=== PATIENT | male | born 1950 | race Caucasian/White ===

== ENCOUNTER → 2017-02-15 | Outpatient (CLI) | payer MEDICARE ==
--- NOTE | 2017-02-15 13:00 | NM ---
EXAMINATION TYPE: NM stress cardiolite complete DATE OF EXAM: 02/15/2017 COMPARISON: NONE HISTORY: Diabetes and chest pain. TECHNIQUE: After the intravenous administration of 10.58 mCi Tc 99m Sestamibi - Rest images obtained 45 minutes post injection. The patient exercised using a VERONICA protocol and 1 minute prior to peak exercise was injected with 27.9 mCi Tc 99m Sestamibi - Stress images obtained 10 minutes post inject ion. FINDINGS: Targeted heart rate was achieved during performance of the study. Review of stress and rest SPECT andrew ges demonstrates no distinct perfusion abnormality. Gated analysis shows normal wall motion with an estimated left ventricular ejection fraction of 67 %. There is a TID of 0.72. IMPRESSION: 1. No scintigraphic evidence for reversible ischemia 2. Estimated left ventricular ejection fraction of 67%.
--- NOTE | 2017-02-15 13:08 | US ---
EXAMINATION TYPE: US abdomen complete DATE OF EXAM: 02/15/2017 COMPARISON: None CLINICAL HISTORY: R10.84 abd pain. NPO, Pain EXAM MEASUREMENTS: Liver Length: 27.7 cm Gallbladder Wall: 0.3 cm CHD: 0.2 cm Spleen: 13.3 cm Right Kidney: 12.8 x 5.8 x 6.0 cm Left Kidney: 12.5 x 5.5 x 6.6 cm Pancreas: Obscured by bowel gas Liver: Enlarged. Increased attenuation, decreased visualization of vessels suggestive of fatty infi ltrate. Hypoechoic lesion seen adjacent to gallbladder = 1.4 cm . This may represent focal fatty spa ring although has a rounded morphology and may also represent a true hepatic lesion. Gallbladder: wnl Evidence for sonographic Landin's sign: neg CHD: wnl Spleen: Measurement approaching splenomegaly of 13.3 cm. Right Kidney: Appears enlarged Left Kidney: Appears enlarged Upper IVC: wnl Abd Aorta: Obscured by overlying bowel gas IMPRESSION: 1. Heterogenous and hyperechoic hepatic echotexture most commonly relating to hepatic steatosis. 2. Rounded hypoechoic hepatic lesion near the gallbladder fossa in segment IVb may represent focal fa tty sparing although as this is rounded in morphology and also may represent a hepatic mass and furth er evaluation with dynamic enhanced CT abdomen is recommended (liver mass protocol) for further evalu ation. 3. Splenic prominence approaching criteria for splenomegaly.
--- NOTE | 2017-02-16 09:26 | EST ---
EXERCISE STRESS This is ECG exercise stress test. AGE: 66 SEX: M HT: 6'2" WT: 252 PROTOCOL: Giovanni STAGE: 3 DURATION OF EXERCISE: 7:12 HEART RATE REST: 69 BLOOD PRESSURE REST: 147/79 MAXIMUM HEART RATE ACHIEVED: 147 MAXIMUM BLOOD PRESSURE: 183/57 85% MPHR: 130 100% MPHR: 153 METS: 8.7 INDICATIONS: History of chest pain. CLINICAL INFORMATION: Baseline heart rate 69 beats per minute. Baseline blood pressure 147/79 mmHg. Patient's baseline 12-lead ECG showed sinus rhythm with normal ST segments and frequent PVCs. The patient exercised on a Giovanni protocol for 7 minutes 12 seconds achieving a peak heart rate of 147 beats per minute. Normal blood pressure response to exercise. Peak blood pressure 193/57 mmHg. There was no ECG evidence for ischemia. PVCs were noted throughout the exercise protocol. One ventricular couplet was noted. No nonsustained ventricular tachycardia. No ECG evidence for ischemia. IMPRESSION: Average exercise capacity. PVCs at rest as well as during exercise and occasional ventricular couplets. No nonsustained ventricular tachycardia. No definite ECG evidence for ischemia. MMODL / IJN: [id number] /
== END | disposition home or self-care (01) ==
LOC: RADNMMAIN 07:52
PROVIDERS: ATTEND Family Medicine
DX: K76.89 Other specified diseases of liver (principal); R07.89 Other chest pain; R10.84 Generalized abdominal pain
CPT/HCPCS: 93017; 76700; 78452; A9500

== ENCOUNTER 2024-09-10 09:17 | Day surgery (SDC) | payer MEDICARE ==
[2024-09-04 15:23] VITALS: BMI 32.7
[~2024-09-10 09:17] MED LIST: LIDOCAINE 1% (10MG/ML) FOR IV START INTRADERMA PRN
[2024-09-10] MEDS: IV FLUID CONTINUATION 1,000 ML IV ONE (09:32)
[2024-09-10] MEDS: LACTATED RINGERS 1,000 ML IV SCH (09:41)
[2024-09-10 09:44] VITALS: TEMP 97.6
[2024-09-10 09:46] LABS: Glucose,Whole Blood 143 mg/dL (70-110)
[2024-09-10] MEDS ORDERED: PROPOFOL 10 MG/ML 20 ML VIAL IV ONE (10:39)
[2024-09-10 11:09] VITALS: RESP 16
--- NOTE | 2024-09-10 11:18 | P.PCN ---
Date of Procedure: 09/10/24 Procedure(s) Performed: BRIEF HISTORY: Patient is a 74-year-old pleasant white female scheduled for an elective colonoscopy as a part of screening for colon cancer/positive Cologuard. PROCEDURE PERFORMED: Colonoscopy with snare polypectomy. PREOPERATIVE DIAGNOSIS: Screening for colon cancer/positive Cologuard. IV sedation per Anesthesia. PROCEDURE: After informed consent was obtained, the patient, was brought into the endoscopy unit. IV sedation was administered by Anesthesia under continuous monitoring. Digital rectal examination was normal. Initially the Olympus CF-160 flexible video colonoscope was then inserted in the rectum, gradually advanced into the cecum without any difficulty. Careful examination was performed as the scope was gradually being withdrawn. Ileocecal valve and the appendiceal orifice were visualized and appeared normal. Prep was excellent. Mucosa of the cecum, had a 5 mm polyp removed by snare polypectomy. He descending colon there was a 1 cm polyp removed by snare polypectomy. In the transverse colon there was a 1 cm, 2 cm broad-based and a 5 mm polyp removed by snare polypectomy. In the descending colon there was a 5 mm polyp removed by snare polypectomy. Sigmoid colon appeared normal. In the rectum there was a 5 mm polyp that was removed by snare polypectomy. Scattered sigmoid diverticulosis retroflexion was performed in the rectum and no lesions were seen. The patient tolerated the procedure well. IMPRESSION: 5 mm cecal polyp status post cold snare polypectomy 1 cm ascending colon polyp status post snare polypectomy 1 cm, 2 cm broad-based and 5 mm transverse colon polyp status post polypectomy 5 mm descending colon polyp status post polypectomy 5 mm rectal polyp status post polypectomy Scattered sigmoid diverticulosis RECOMMENDATIONS: Findings of this examination were discussed with the patient as well as his family.. He was advised to follow-up with the biopsy results. If the biopsy reveals adenoma he can have repeat colonoscopy in 3 years.
[2024-09-10 11:26] VITALS: BP 134/71; PULSE 61
== END 2024-09-10 11:37 | disposition home or self-care (01) ==
LOC: ORWHC2ENDO 09:17
PROVIDERS: ATTEND Internal Medicine Gastroenterology
DX: Z12.11 Encounter for screening for malignant neoplasm of colon (principal); D12.3 Benign neoplasm of transverse colon; D12.0 Benign neoplasm of cecum; D12.4 Benign neoplasm of descending colon; D12.2 Benign neoplasm of ascending colon; D12.8 Benign neoplasm of rectum; K57.30 Diverticulosis of large intestine without perforation or abscess without bleeding; E11.9 Type 2 diabetes mellitus without complications; G47.33 Obstructive sleep apnea (adult) (pediatric); M10.9 Gout, unspecified; L71.9 Rosacea, unspecified; Z79.84 Long term (current) use of oral hypoglycemic drugs; Z79.899 Other long term (current) drug therapy; Z88.0 Allergy status to penicillin
CPT/HCPCS: 45385; 88305; J2704